=== PATIENT | male | born 1960 | race Caucasian/White ===

== ENCOUNTER → 2019-01-17 | Outpatient (CLI) | payer OTHER ==
--- NOTE | 2019-01-17 13:31 | Diagnostic Imaging Report ---
PROCEDURE: MRI left upper extremity without contrast. TECHNIQUE: Multiplanar, multisequence non contrast-enhanced MRI of the left upper extremity was accomplished. INDICATION: Left upper arm and shoulder pain with heavy lifting injury. COMPARISON: None. FINDINGS: No acute fracture is seen in the left upper arm. Alignment appears normal. There are mild degenerative changes in the acromioclavicular joint. There is mildly increased fluid in the superior subscapularis recess. No osseous lesions are seen. The rotator cuff is suboptimally evaluated on this large field of view. There does appear to be some tendinosis and low-grade partial tearing of the anterior supraspinatus tendon. No full-thickness rotator cuff tear is seen. There is no muscular atrophy. There is a complete tear of the proximal long head of the biceps tendon which is retracted distally, with the stump approximately 3 cm distal to the dome of the humeral head, at the inferior aspect of the bicipital groove. The glenoid labrum is suboptimally evaluated in the absence of intra-articular contrast, however there does appear to be tearing of the posterior glenoid labrum, which is likely degenerative. No para-labral cyst is seen. The acromion has a curved undersurface without hooking. The coracoclavicular ligament is intact. No soft tissue fluid collections or masses are seen. IMPRESSION: 1. Complete tear of the proximal long head of the biceps tendon, with mild retraction. 2. Tendinosis and low-grade partial tearing of the anterior supraspinous tendon with no full-thickness rotator cuff tear seen on this noeoa-wn-gfos. Dictated by: Dictated on workstation # [id number]
== END ==
LOC: RAD 10:17
PROVIDERS: ATTEND Nurse Practitioner
DX: S46.112A Strain of muscle, fascia and tendon of long head of biceps, left arm, initial encounter (principal); S46.012A Strain of muscle(s) and tendon(s) of the rotator cuff of left shoulder, initial encounter; M66.822 Spontaneous rupture of other tendons, left upper arm; X50.0XXA Overexertion from strenuous movement or load, initial encounter
CPT/HCPCS: 73218

== ENCOUNTER → 2021-05-17 | Outpatient (CLI) | payer MEDICARE, OTHER ==
--- NOTE | 2021-05-17 16:32 | Diagnostic Imaging Report ---
EXAMINATION: US Lower Extremity Venous Duplex Left. TECHNIQUE: Multiple real-time grayscale images were obtained over the left lower extremity in various projections. Additional spectral analysis and color Doppler duplex images were also obtained. HISTORY: Pain and swelling COMPARISON: None available. FINDINGS: Left: The common femoral, superficial femoral, popliteal, peroneal, posterior tibial, and greater saphenous veins demonstrate normal flow, augmentation, compressibility. IMPRESSION: 1. No DVT of the left lower extremity. Dictated by: Dictated on workstation # [id number]
== END ==
LOC: RAD 16:00
PROVIDERS: ATTEND Nurse Practitioner Family
DX: M79.605 Pain in left leg (principal); M79.89 Other specified soft tissue disorders

== ENCOUNTER 2021-08-05 00:08 | Emergency (ER) | payer MEDICARE ==
[~2021-08-05] VITALS: Ht 167.7 cm; Wt 63.5 kg
--- NOTE | 2021-08-05 00:38 | ED Abdominal Pain ---
General Stated Complaint: ALS,GASTRIC PAIN,CONFUSION,SHAKY Source of Information: Patient Exam Limitations: No Limitations History of Present Illness Date Seen by Provider: August 05, 2021 Time Seen by Provider: 00:14 Initial Comments Patient to the ER by private conveyance with his son/POA and significant other. He is having progressively worsening ALS since October 2020 and for the past 3 days has not been able passing stool and is having significant left lower quadrant abdominal pain. He has been using Dulcolax and MiraLAX several times a day as well as drinking lots of fluids and did finally pass a small amount of stool with no relief of symptoms. He is been using Tylenol for pain without significant relief. He does not use opiates. He is not on a blood thinner. He has no other significant medical history other than his had his knees fixed. He used to take a lot of aspirin and ibuprofen for his knee pain before he had them fixed and ended up with a gastric ulcer but does not even take any medicine for that anymore nor does he have indigestion symptoms. No kidney problems or heart problems. He follows with Dr. Nuñez and is in the palliative care [facility] program. Allergies and Home Medications Allergies Coded Allergies: No Known Drug Allergies (Unverified , 08/05/21) Patient Home Medication List Home Medication List Reviewed: Yes Review of Systems Review of Systems Constitutional: No chills, No fever; malaise, weakness EENTM: No Blurred Vision, No Double Vision Respiratory: Denies Cough, Denies Shortness of Air Cardiovascular: Denies Chest Pain; Edema (Chronic edema) Gastrointestinal: See HPI; Denies Abdomen Distended; Abdominal Pain, Con stipated; Denies Diarrhea; Nausea; Denies Poor Fluid Intake, Denies Vomiting Genitourinary: Denies Burning, Denies Discharge Musculoskeletal: No back pain, No joint pain Psychiatric/Neurological: Denies Anxiety, Denies Depressed All Other Systems Reviewed Negative Unless Noted: Yes Past Leleeoo-Tmumky-Xvhzdy Hx Patient Social History Tobacco Use?: No Use of E-Cig and/or Vaping dev: No Physical Exam Vital Signs Vital Signs - First Documented 08/05/21 00:18 Temp 36.5 Pulse 89 Resp 20 B/P (MAP) 143/106 (118) Pulse Ox 98 Capillary Refill : Height/Weight/BMI Height: '" Weight: lbs. oz. kg; BMI Method: General Appearance: moderate distress, other (Shaking) HEENT: PERRL/EOMI, pharynx normal (Moist oral mucosa) Neck: full range of motion, supple, normal inspection Respiratory: no respiratory distress, no accessory muscle use Cardiovascular: normal peripheral pulses, regular rate, rhythm Peripheral Pulses: 2+ Dorsalis Pedis (R), 2+ Left Dors-Pedis (L), 2+ Radial Pulses (R), 2+ Radial Pulses (L) Gastrointestinal: normal bowel sounds, distended (Mild); No rebound; tenderness (Left lower quadrant abdomen without mesenteric signs, McBurney's point or Fernandez sign tenderness or rebound) Extremities: normal range of motion, non-tender, normal capillary refill Neurologic/Psychiatric: alert, oriented x 3, other (Anxious affect, tremulousness) Skin: normal color, warm/dry Progress/Results/Core Measures Results/Orders Lab Results Laboratory Tests Test 08/05/21 00:32 08/05/21 02:17 Range/Units White Blood Count 7.9 4.3-11.0 10^3/uL Red Blood Count 4.71 4.30-5.52 10^6/uL Hemoglobin 16.3 13.3-17.7 g/dL Hematocrit 46 40-54 % Mean Corpuscular Volume 97 80-99 fL Mean Corpuscular Hemoglobin 35 H 25-34 pg Mean Corpuscular Hemoglobin Concent 36 32-36 g/dL Red Cell Distribution Width 11.8 10.0-14.5 % Platelet Count 336 130-400 10^3/uL Mean Platelet Volume 10.4 9.0-12.2 fL Immature Granulocyte % (Auto) 0 % Neutrophils (%) (Auto) 60 42-75 % Lymphocytes (%) (Auto) 26 12-44 % Monocytes (%) (Auto) 12 0-12 % Eosinophils (%) (Auto) 1 0-10 % Basophils (%) (Auto) 1 0-10 % Neutrophils # (Auto) 4.7 1.8-7.8 10^3/uL Lymphocytes # (Auto) 2.0 1.0-4.0 10^3/uL Monocytes # (Auto) 1.0 0.0-1.0 10^3/uL Eosinophils # (Auto) 0.1 0.0-0.3 10^3/uL Basophils # (Auto) 0.0 0.0-0.1 10^3/uL Immature Granulocyte # (Auto) 0.0 0.0-0.1 10^3/uL Sodium Level 138 135-145 MMOL/L Potassium Level 3.3 L 3.6-5.0 MMOL/L Chloride Level 99 98-107 MMOL/L Carbon Dioxide Level 23 21-32 MMOL/L Anion Gap 16 H 5-14 MMOL/L Blood Urea Nitrogen 15 7-18 MG/DL Creatinine 0.92 0.60-1.30 MG/DL Estimat Glomerular Filtration Rate 94 BUN/Creatinine Ratio 16 Glucose Level 112 H 70-105 MG/DL Calcium Level 10.3 H 8.5-10.1 MG/DL Corrected Calcium 8.5-10.1 MG/DL Total Bilirubin 1.1 H 0.1-1.0 MG/DL Aspartate Amino Transf (AST/SGOT) 33 5-34 U/L Alanine Aminotransferase (ALT/SGPT) 48 0-55 U/L Alkaline Phosphatase 73 40-136 U/L C-Reactive Protein High Sensitivity 0.71 H 0.00-0.50 MG/DL Total Protein 7.8 6.4-8.2 GM/DL Albumin 4.7 H 3.2-4.5 GM/DL Lipase 44 8-78 U/L Urine Color YELLOW Urine Clarity CLEAR Urine pH 6.0 5-9 Urine Specific [place] 1.015 L 1.016-1.022 Urine Protein NEGATIVE NEGATIVE Urine Glucose (UA) NEGATIVE NEGATIVE Urine Ketones TRACE H NEGATIVE Urine Nitrite NEGATIVE NEGATIVE Urine Bilirubin NEGATIVE NEGATIVE Urine Urobilinogen 0.2 < = 1.0 MG/DL Urine Leukocyte Esterase NEGATIVE NEGATIVE Urine RBC (Auto) NEGATIVE NEGATIVE Urine RBC NONE /HPF Urine WBC NONE /HPF Urine Squamous Epithelial Cells RARE /HPF Urine Crystals NONE /LPF Urine Bacteria NEGATIVE /HPF Urine Casts NONE /LPF Urine Mucus NEGATIVE /LPF Urine Culture Indicated NO My Orders Orders - CURTIS SOLIZ Ua Culture If Indicated (08/05/21 00:12) Ed Iv/Invasive Line Start (08/05/21 00:31) Ns Iv 500 Ml (Sodium Chloride 0.9%) (08/05/21 00:45) Ketorolac Injection (Toradol Injection) (08/05/21 00:45) Ondansetron Injection (Zofran Injectio (08/05/21 00:45) Ct Abdomen/Pelvis W (08/05/21 00:31) Cbc With Automated Diff (08/05/21 00:31) Comprehensive Metabolic Panel (08/05/21 00:31) Hs C Reactive Protein (08/05/21 00:31) Lipase (08/05/21 00:31) Pantoprazole Injection (Protonix Injecti (08/05/21 00:45) Fentanyl Inj (Sublimaze Injection) (08/05/21 01:30) Medications Given in ED Vital Signs/I&O 08/05/21 08/05/21 00:18 03:04 Temp 36.5 Pulse 89 77 Resp 20 20 B/P (MAP) 143/106 (118) 138/80 Pulse Ox 98 95 Progress Progress Note #1: Time: 00:37 Progress Note Plan to get some labs and urine we will give him a CT of the abdomen pelvis with IV and oral contrast. We will give him 500 cc of saline to help flush out contrast. Suspect obstipation versus bowel obstruction. Progress Note #2: Time: 02:34 Progress Note With 2 person assist we are able to get the patient up to bedside commode. He was able to produce a urine specimen however he states he is too weak to have a bowel movement. Suspect that if we let him get some sleep and tomorrow try a enema and he may be successful moving his bowels. This is likely related to his ALS diagnosis. Diagnostic Imaging Diagonstic Imaging: CT Plain Films/CT/US/NM/MRI: abdomen, pelvis Comments Mildly distended stool-filled rectum measuring 5.3 cm in transverse diameter. No obstruction or other acute abnormality. [facility] [place], [place] NAME: ELIJAH NARAYANAN [facility] REC#: [id number] PT STATUS: DEP ER : 1960 PHYSICIAN: CURTIS SOLIZ MD ADMIT DATE: 08/05/21/ER Signed Date of Exam:08/05/21 CT ABDOMEN/PELVIS W PROCEDURE: CT abdomen and pelvis with contrast. TECHNIQUE: Multiple contiguous axial images were obtained through the abdomen and pelvis after administration of intravenous contrast. Auto Exposure Controls were utilized during the CT exam to meet ALARA standards for radiation dose reduction. All CT scans use one or more of the following dose optimizing techniques: automated exposure control, MA and/or KvP adjustment based on patient size and exam type or iterative reconstruction. INDICATION: Constipation. No prior studies are available for comparison. Imaging through lung bases does show some linear atelectasis or scarring bilateral lower lobes. Liver demonstrates generalized low density consistent with hepatic steatosis. There is a small cyst in the left lobe of liver. There is some mild distention of the gallbladder but no biliary ductal dilatation is seen. Pancreas and spleen are unremarkable. No adrenal mass is detected. There are some small hyperdense foci within both kidneys suggestive of nonobstructing calculi. There is no hydronephrosis. Aorta is nonaneurysmal. Small and large bowel loops appear to be normal caliber. There is diverticulosis of the sigmoid but no evidence of acute diverticulitis. There is moderate stool in the rectum. The bladder is unremarkable. There is some prostatic enlargement. There is also fat-containing left inguinal hernia. No free fluid or fluid collection is identified. No inflammatory changes are seen. IMPRESSION: 1. Hepatic steatosis. 2. There is some mild gallbladder distention. If there is concern for gallbladder pathology, gallbladder ultrasound could be performed for further evaluation. 3. Uncomplicated diverticulosis. 4. Prostatomegaly. 5. Fat-containing left inguinal hernia. Dictated by: Dictated on workstation # [id number] Dict: 08/05/21 0707 Trans: 08/05/21 1536 [facility] [id number] Interpreted by: TONY FINLEY MD Electronically signed by: TONY FINLEY MD 08/05/21 1536 Reviewed: Reviewed Night [facility] Study, Reviewed by Me Departure Impression Primary Impression: Constipation by delayed colonic transit Disposition: 01 HOME, SELF-CARE Condition: Stable Departure-Patient Inst. Decision time for Depature: 02:52 Referrals: NICHELLE SOLIS MD (PCP/Family) Primary Care Physician Patient Instructions: Constipation, Adult (DC) Add. Discharge Instructions: Colace 200 mg once or twice a day to keep stools soft. MiraLAX 1-4 times a day as needed for maintenance or producing a bowel movement. It is okay to use high-fiber diet and foods however if you become obstipated again like this then you should reduce how much fiber you are eating and increase MiraLAX and Dulcolax as well as your water intake. Get some sleep tonight and in the morning obtain an enema such as a Fleet enema and hold for 10 to 15 minutes in the rectum before attempting to have a bowel movement. CURTIS SOLIZ August 05, 2021 00:38
[2021-08-05 00:43] LABS: BASOPHILS % (AUTO) 1 % (0-10); EOSINOPHILS # (AUTO) 0.1 10^3/uL (0.0-0.3); EOSINOPHILS % (AUTO) 1 % (0-10); HEMATOCRIT 46 % (40-54); HEMOGLOBIN 16.3 g/dL (13.3-17.7); LYMPHOCYTES % (AUTO) 26 % (12-44); MEAN CORPUSCULAR HEMOGLOBIN 35 pg (25-34); MEAN CORPUSCULAR HGB CONC 36 g/dL (32-36); MEAN CORPUSCULAR VOLUME 97 fL (80-99); MEAN PLATELET VOLUME 10.4 fL (9.0-12.2); MONOCYTES % (AUTO) 12 % (0-12); NEUTROPHILS # (AUTO) 4.7 10^3/uL (1.8-7.8); NEUTROPHILS % (AUTO) 60 % (42-75); PLATELET COUNT 336 10^3/uL (130-400); WHITE BLOOD COUNT 7.9 10^3/uL (4.3-11.0)
[2021-08-05] MEDS ORDERED: ONDANSETRON 4 MG/2 ML (SDV) Z0FRAN IVP ONE (00:45)
[2021-08-05] MEDS ORDERED: PANTOPRAZOLE 40 MG (PROTONIX) VIAL IV ONE (00:45)
[2021-08-05] MEDS ORDERED: NS IV 500 ML 500 ML IV ONE (00:45)
[2021-08-05] MEDS ORDERED: KETOROLAC 30 MG/ML VIAL IVP ONE (00:45)
[2021-08-05 00:50] LABS: ALBUMIN 4.7 GM/DL (3.2-4.5); CHLORIDE 99 MMOL/L (98-107); POTASSIUM 3.3 MMOL/L (3.6-5.0); SODIUM 138 MMOL/L (135-145)
[2021-08-05 00:51] LABS: CALCIUM 10.3 MG/DL (8.5-10.1)
[2021-08-05 00:52] LABS: GLUCOSE 112 MG/DL (70-105)
[2021-08-05 00:53] LABS: TOTAL PROTEIN 7.8 GM/DL (6.4-8.2)
[2021-08-05 00:54] LABS: BILIRUBIN,TOTAL 1.1 MG/DL (0.1-1.0); CARBON DIOXIDE 23 MMOL/L (21-32)
[2021-08-05 00:56] LABS: ALKALINE PHOSPHATASE 73 U/L (40-136); CREATININE SERUM 0.92 MG/DL (0.60-1.30); GFR ESTIMATED 94
[2021-08-05 00:57] LABS: BUN/CREATININE RATIO 16
[2021-08-05 00:59] LABS: ALANINE AMINOTRANSFERASE 48 U/L (0-55)
[2021-08-05 01:00] LABS: LIPASE 44 U/L (8-78)
[2021-08-05] MEDS ORDERED: fentaNYL INJ 100 MCG/2 ML AMP IVP ONE (01:30)
[2021-08-05 02:22] LABS: BILIRUBIN,URINE NEGATIVE (NEGATIVE); CLARITY,URINE CLEAR; COLOR,URINE YELLOW; GLUCOSE, URINE (UA) NEGATIVE (NEGATIVE); KETONES,URINE TRACE (NEGATIVE); LEUKOCYTE ESTERASE ,URINE NEGATIVE (NEGATIVE); NITRITE,URINE NEGATIVE (NEGATIVE); PROTEIN,URINE NEGATIVE (NEGATIVE)
[2021-08-05 02:32] LABS: BACTERIA,URINE NEGATIVE /HPF
[2021-08-05 02:33] LABS: SQUAMOUS EPITHELIAL CELL,UR RARE /HPF
[2021-08-05 03:04] VITALS: BP 138/80
--- NOTE | 2021-08-05 07:15 | Diagnostic Imaging Report ---
PROCEDURE: CT abdomen and pelvis with contrast. TECHNIQUE: Multiple contiguous axial images were obtained through the abdomen and pelvis after administration of intravenous contrast. Auto Exposure Controls were utilized during the CT exam to meet ALARA standards for radiation dose reduction. All CT scans use one or more of the following dose optimizing techniques: automated exposure control, MA and/or KvP adjustment based on patient size and exam type or iterative reconstruction. INDICATION: Constipation. No prior studies are available for comparison. Imaging through lung bases does show some linear atelectasis or scarring bilateral lower lobes. Liver demonstrates generalized low density consistent with hepatic steatosis. There is a small cyst in the left lobe of liver. There is some mild distention of the gallbladder but no biliary ductal dilatation is seen. Pancreas and spleen are unremarkable. No adrenal mass is detected. There are some small hyperdense foci within both kidneys suggestive of nonobstructing calculi. There is no hydronephrosis. Aorta is nonaneurysmal. Small and large bowel loops appear to be normal caliber. There is diverticulosis of the sigmoid but no evidence of acute diverticulitis. There is moderate stool in the rectum. The bladder is unremarkable. There is some prostatic enlargement. There is also fat-containing left inguinal hernia. No free fluid or fluid collection is identified. No inflammatory changes are seen. IMPRESSION: 1. Hepatic steatosis. 2. There is some mild gallbladder distention. If there is concern for gallbladder pathology, gallbladder ultrasound could be performed for further evaluation. 3. Uncomplicated diverticulosis. 4. Prostatomegaly. 5. Fat-containing left inguinal hernia. Dictated by: Dictated on workstation # [id number]
== END 2021-08-05 03:06 | disposition home or self-care (01) ==
LOC: EDUNIT# 00:08 → ER 00:12
DX: K59.01 Slow transit constipation (principal)
CPT/HCPCS: 36415; 74177; 80053; 81000; 83690; 85025; 86141

== ENCOUNTER → 2021-09-11 | Outpatient (CLI) | payer MEDICARE ==
[2021-09-11 10:21] LABS: BILIRUBIN,URINE NEGATIVE (NEGATIVE); CLARITY,URINE SL CLOUDY; COLOR,URINE YELLOW; GLUCOSE, URINE (UA) TRACE (NEGATIVE); KETONES,URINE NEGATIVE (NEGATIVE); LEUKOCYTE ESTERASE ,URINE 3+ (NEGATIVE); NITRITE,URINE POSITIVE (NEGATIVE); PH,URINE 7.5 (5-9); PROTEIN,URINE 2+ (NEGATIVE)
[2021-09-11 10:49] LABS: BACTERIA,URINE LARGE /HPF
[2021-09-11 10:50] LABS: AMORPHOUS SEDIMENT,UR LARGE AMOR PHOSPHATE /LPF
== END ==
LOC: LABNPT 10:16
PROVIDERS: ATTEND Nurse Practitioner
DX: Z01.89 Encounter for other specified special examinations (principal)
CPT/HCPCS: 81000; 87077; 87088; 87186

== ENCOUNTER → 2021-10-07 | Outpatient (CLI) | payer MEDICARE ==
[2021-10-07 14:00] LABS: BILIRUBIN,URINE NEGATIVE (NEGATIVE); CLARITY,URINE SL CLOUDY; COLOR,URINE YELLOW; GLUCOSE, URINE (UA) NEGATIVE (NEGATIVE); KETONES,URINE NEGATIVE (NEGATIVE); LEUKOCYTE ESTERASE ,URINE 1+ (NEGATIVE); NITRITE,URINE POSITIVE (NEGATIVE); PROTEIN,URINE NEGATIVE (NEGATIVE)
[2021-10-07 14:09] LABS: BACTERIA,URINE LARGE /HPF; CALCIUM OXALATE CRYSTALS,UR FEW /LPF
[2021-10-07 14:10] LABS: YEAST,URINE MODERATE /HPF
== END ==
LOC: LABNPT 13:56
PROVIDERS: ATTEND Nurse Practitioner
DX: R30.0 Dysuria (principal); G12.21 Amyotrophic lateral sclerosis; J30.9 Allergic rhinitis, unspecified; M54.50 Low back pain, unspecified; K21.9 Gastro-esophageal reflux disease without esophagitis; K59.01 Slow transit constipation; I10 Essential (primary) hypertension; G47.9 Sleep disorder, unspecified; F33.1 Major depressive disorder, recurrent, moderate; F41.1 Generalized anxiety disorder; R33.9 Retention of urine, unspecified; R60.9 Edema, unspecified; Z91.81 History of falling; Z86.16 Personal history of COVID-19
CPT/HCPCS: 81000; 87077; 87088; 87186